=== PATIENT | female | born 1985 | race Caucasian/White ===

== ENCOUNTER → 2024-01-14 13:23 | Outpatient (REF) | payer BC, SELFPAY | LOC: RAD 13:23 | PROVIDERS: ATTENDING PHYSICIAN Physician Assistant Medical | DX: R59.0 Localized enlarged lymph nodes (principal) | CPT/HCPCS: 76536 ==

== ENCOUNTER → 2024-05-12 08:35 | Outpatient (REF) | payer BC, SELFPAY | LOC: HWRAD 08:35 | PROVIDERS: ATTENDING PHYSICIAN Urology; FAMILY PHYSICIAN Physician Assistant Medical | DX: N20.0 Calculus of kidney (principal) | CPT/HCPCS: 74018 ==

== ENCOUNTER → 2025-05-29 10:03 | Outpatient (REF) | payer BC, SELFPAY | LOC: HWRAD 10:03 | PROVIDERS: ATTENDING PHYSICIAN Urology; FAMILY PHYSICIAN Physician Assistant Medical | DX: N20.0 Calculus of kidney (principal) | CPT/HCPCS: 74018 ==